=== PATIENT | male | born 1970 | race Hispanic/Latino ===

== ENCOUNTER 2017-06-13 08:01 | Inpatient (IN) | payer OTHER ==
[~2017-06-13] VITALS: Ht 167.6 cm; Wt 81.9 kg
[2017-06-13 11:40] LABS: HEMATOCRIT 46.1 % (38.0-50.0); HEMOGLOBIN 16.6 G/DL (12.5-16.6); PLATELET COUNT 219 K/uL (156-360); RBC DIS.WIDTH-CV 12.7 % (11.8-14.6); RBC DIS.WIDTH-SD 39.4 % (39-53); RED BLOOD COUNT 5.36 M/uL (4.00-5.50); WHITE BLOOD COUNT 12.6 K/uL (4.1-10.2)
[2017-06-13 11:54] LABS: CHLORIDE 103 mEq/L (99-109); POTASSIUM 3.9 mEq/L (3.7-5.4); SODIUM 139 mEq/L (136-147)
[2017-06-13 11:55] LABS: GLUCOSE 168 mg/dL (70-99)
[2017-06-13 11:59] LABS: GFR ESTIMATE (CALCULATED) > 59 mL/min/ (58.99-99999)
[2017-06-13 12:00] LABS: UREA NITROGEN (BUN) 11 mg/dL (9-23)
[2017-06-13 18:16] VITALS: BP 129/89
[2017-06-13 23:19] VITALS: BP 126/78
[2017-06-14 03:29] VITALS: BP 114/73
[2017-06-14 06:21] LABS: HEMATOCRIT 43.3 % (38.0-50.0); HEMOGLOBIN 15.1 G/DL (12.5-16.6); MCH 30.7 PG (29.0-34.0); MCHC 34.9 G/DL (30.0-36.0); PLATELET COUNT 197 K/uL (156-360); RBC DIS.WIDTH-CV 13.2 % (11.8-14.6); RBC DIS.WIDTH-SD 42.6 % (39-53); RED BLOOD COUNT 4.92 M/uL (4.00-5.50); WHITE BLOOD COUNT 8.1 K/uL (4.1-10.2)
[2017-06-14 06:40] LABS: ALBUMIN 3.8 G/DL (3.2-4.8); ALKALINE PHOSPHATASE 72 IU/L (3-129); ALT (GPT) 23 IU/L (3-49); AST (GOT) 18 IU/L (2-34); CHLORIDE 104 MEQ/L (99-109); CREATININE 1.1 MG/DL (0.6-1.3); GFR ESTIMATE (CALCULATED) > 59 mL/min/ (58.99-99999); GLUCOSE 172 mg/dL (70-99); POTASSIUM 4.1 MEQ/L (3.7-5.4); SODIUM 141 MEQ/L (136-147); TOTAL BILIRUBIN 0.7 MG/DL (0.0-1.0); TOTAL PROTEIN 6.3 G/DL (6.4-8.3); UREA NITROGEN (BUN) 11 mg/dL (9-23)
[2017-06-14 08:05] VITALS: BP 131/73
[2017-06-14] MEDS ORDERED: TYLENOL REGULA325 MG PO (11:04)
[2017-06-14 12:06] VITALS: BP 123/71
== END 2017-06-14 13:39 | DRG 86 ==
LOC: EME 08:01 → EDOF 12:53 → 3EAST 12:53 → ENRESERV 12:54 → 3EAST 17:56
PROVIDERS: Nurse Practitioner Family; Surgery
DX: S02.19XA Other fracture of base of skull, initial encounter for closed fracture (principal); S06.321A Contusion and laceration of left cerebrum with loss of consciousness of 30 minutes or less, initial encounter; S09.22XA Traumatic rupture of left ear drum, initial encounter; W06.XXXA Fall from bed, initial encounter; Y92.143 Cell of prison as the place of occurrence of the external cause; M25.512 Pain in left shoulder; E78.00 Pure hypercholesterolemia, unspecified; Z23 Encounter for immunization
CPT/HCPCS: 70450; 70496; 71046; 73030; 80048; 80053; 85027; 99281; 99285; J2405; J3010; J3480